=== PATIENT | female | born 1975 | race African-American/Black ===

== ENCOUNTER 2016-05-16 15:59 | Emergency (ER) | payer BC, OTHER ==
[2016-05-16 16:06] VITALS: BP 138/91; PULSE 100; TEMP 97.9; BMI 33.5
--- NOTE | 2016-05-16 16:12 | PDOC ---
Rapid Medical Evaluation Chief Complaint: Vaginal Sxs Time Seen by Provider: 05/16/16 16:08 Medical Evaluation: Allergies Allergy/AdvReac Type Severity Reaction Status Date / Time No Known Drug Allergies Allergy Verified 05/16/16 16:03 Vital Signs Temp Pulse Resp BP Pulse Ox 97.9 F 100 H 18 138/91 99 05/16/16 16:04 05/16/16 16:04 05/16/16 16:04 05/16/16 16:04 05/16/16 16:04 05/16/16 16:10 RME Note: I have performed a brief, in-person evaluation of this patient . This patient presents with CC: Dysuria and outter vaginal itch x 3 days Pertinent PE findings are: No PE; no fever I have ordered: UA, U preg., Urine chlamydia and GC The patient will proceed to ED for further evaluation.
[2016-05-16 17:50] LABS: URINE APPEARANCE CLOUDY; URINE BILIRUBIN NEGATIVE (NEGATIVE); URINE BLOOD NEGATIVE (NEGATIVE); URINE COLOR AMBER; URINE GLUCOSE (UA) NEGATIVE (NEGATIVE); URINE KETONE NEGATIVE (NEGATIVE); URINE LEUK ESTERASE 1+ (NEGATIVE); URINE NITRITE POSITIVE (NEGATIVE); URINE PROTEIN 1+ (NEGATIVE); URINE UROBILINOGEN 4.0 E.U/dl E.U./dl (0.2-1.0)
[2016-05-16 17:57] LABS: URINE BACTERIA RARE /hpf (NONE SEEN); URINE MUCUS RARE; URINE RBC 2 /hpf (0-3); URINE WBC 35 /hpf (3-5); YEAST MANY
[2016-05-16] MEDS ORDERED: AZITHROMYCIN 1 GM PACKET PO ONE (18:45)
[2016-05-16] MEDS ORDERED: AZITHROMYCIN 1 GM PACKET ONE (18:48)
--- NOTE | 2016-05-16 18:54 | PDOC ---
History of Present Illness - General Chief Complaint: Vaginal Sxs Stated Complaint: GENITAL PAIN/ ITCHING, BURNING Time Seen by Provider: 05/16/16 16:08 History Source: Patient Exam Limitations: No Limitations - History of Present Illness Travel History: No Initial Comments: 05/16/16 18:46 40 yr female with "cuts to vagina" vaginal discharge for 4 days. Pt states the sores to vaginal area are multiplying. Pt c/o urinary urgency and burning. Past History - Past Medical History Allergies/Adverse Reactions: Allergies Allergy/AdvReac Type Severity Reaction Status Date / Time No Known Drug Allergies Allergy Verified 05/16/16 16:03 Home Medications: Ambulatory Orders Ferrous Sulfate [Feosol] 650 mg PO DAILY #1 11/26/12 Oxycodone HCl/Acetaminophen [Percocet 5-325 mg Tablet] 2 combo PO Q4H PRN #30 tablet 11/26/12 Acyclovir [Zovirax -] 400 mg PO TID #60 capsule 05/16/16 Cephalexin [Keflex] 500 mg PO BID #14 capsule 05/16/16 Anemia: Yes Asthma: No Cancer: No Cardiac Disorders: No CVA: No COPD: No CHF: No Dementia: No Diabetes: No GI Disorders: No Disorders: No HTN: No Hypercholesterolemia: No Liver Disease: No Seizures: Yes (FIRST SEIZURE-09/08) Thyroid Disease: No - Psycho/Social/Smoking Cessation Hx Suicidal Ideation: No Smoking History: Never smoked Hx Alcohol Use: No Drug/Substance Use Hx: No Substance Use Type: None Hx Substance Use Treatment: No Review of Systems - Review of Systems Able to Perform ROS?: Yes Is the patient limited Burkinan proficient: No Constitutional: No: Symptoms Reported HEENTM: No: Symptoms Reported Respiratory: No: Symptoms reported Cardiac (ROS): No: Symptoms Reported ABD/GI: No: Symptoms Reported : Yes: Symptoms Reported, See HPI *Physical Exam - Vital Signs Last Vital Signs Temp Pulse Resp BP Pulse Ox 97.9 F 100 H 18 138/91 99 05/16/16 16:04 05/16/16 16:04 05/16/16 16:04 05/16/16 16:04 05/16/16 16:04 - Physical Exam General Appearance: Yes: Nourished, Appropriately Dressed HEENT: positive: EOMI, CHICHI, Normal ENT Inspection, TMs Normal, Pharynx Normal Neck: positive: Supple Respiratory/Chest: positive: Lungs Clear, Normal Breath Sounds Cardiovascular: positive: Regular Rhythm, Regular Rate Female Pelvic Exam: positive: discharge (yellow discharge), other (lesions multiple to labia majora and minor, circular grouped vesicles some open ) ED Treatment Course - ADDITIONAL ORDERS Additional order review: Laboratory Results 05/16/16 17:20 Urine Color Bekah Urine Appearance Cloudy Urine pH 7.0 D Ur Specific [place] 1.018 Urine Protein 1+ H Urine Glucose (UA) Negative Urine Ketones Negative Urine Blood Negative Urine Nitrite Positive Urine Bilirubin Negative Urine Urobilinogen 4.0 e.u/dl H Ur Leukocyte Esterase 1+ H Urine RBC 2 Urine WBC 35 Ur Epithelial Cells Many Urine Bacteria Rare Urine Mucus Rare Urine Yeast Many Medical Decision Making - Medical Decision Making 05/16/16 18:48 cc: vaginal discharge "cuts on vagina" will check UA r/o UTI, chalmydia gc sent pt admits to unprotected sex with one male no previous history of STD 05/16/16 18:49 05/16/16 18:59 I have discussed in detail with pt to have 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 and primary care doctor medications given as discussed pt refused HIV test today will follow with her PMD 05/16/16 19:08 *DC/Admit/Observation/Transfer Diagnosis at time of Disposition: Herpes genitalis in women Urinary tract infection Qualifiers: Urinary tract infection type: acute cystitis Hematuria presence: with hematuria Qualified Code(s): N30.01 - Acute cystitis with hematuria - Discharge Dispostion Disposition: HOME Condition at time of disposition: Good - Prescriptions Prescriptions: Cephalexin [Keflex] 500 mg PO BID #14 capsule Acyclovir [Zovirax -] 400 mg PO TID #60 capsule - Referrals Referrals: Dea Daugherty MD [Primary Care Provider] - Dwight Fisher MD [Staff Physician] - - Patient Instructions Additional Instructions: take the medications as prescribed no sexual activity until symptoms have improved and you have followed up with the marble setter you have a urine infection and will need to take 7 days of antibiotics sent to [facility] antiviral medication sent to [facility] as well - Post Discharge Activity Work/School Note: Back to Work
== END 2016-05-16 19:38 | disposition home or self-care (01) ==
LOC: JERFT 15:59
DX: A60.04 Herpesviral vulvovaginitis (principal); N30.01 Acute cystitis with hematuria
CPT/HCPCS: 36415; 81003; 81015; 84703; 86593; 87070; 87205; 87255; 87491; 87591; 96372; 99281-25

== ENCOUNTER 2019-03-24 20:00 | Inpatient (IN) | payer OTHER ==
--- NOTE | 2019-03-24 20:38 | PDOC ---
Attending Attestation - Resident Resident Name: Delfino Nichols - ED Attending Attestation I have performed the following: I have examined & evaluated the patient, The case was reviewed & discussed with the resident, I agree w/resident's findings & plan - HPI HPI: 03/24/19 21:11 Pt called by PMD and told to get admitted to the hospital for hb of 4.5 Here in the ER pt has Hb of 4.5, and we are arranging for transfusion Pt reports heavy menstrual flow "like a river" for the first 3 days of her week long menses. Pt gets a regular period. She has a hx of uterine fibroids, whicgh were resected by her URGENT CARE PHYSICIAN Adrienne. Pt is on her menses now. Pt has SOB and weakness, but she walks slowly and takes her time with everything. She works at [employer], and she is relatively sedentary. - Physicial Exam PE: 03/24/19 21:15 Pt has pale conjunctiva Pt is tachycardic Pt has normal HEENT lungs CTAB abd soft NT ND no flank pain No neuro deficits afebrile - Medical Decision Making 03/24/19 21:16 Pt will get PRBCs and she will be admitted PMD is Sarina Heart Score/ECG Review - ECG Intrepretation Rhythm: Regular Rhythm - [place]: Normal - P and [place] Delta Wave(s) Present: No WPW: No - ST and T Early Repolarization: No Non Specific ST-T Wave changes: No Flattened T Waves: No Prolonged Q-T Interval: No - ECG Impressions Normal ECG: Yes Non-specific ST Elevation: No Ischemic Changes: No Bradycardia: No Torsades manish Pointes: No WPW: No
--- NOTE | 2019-03-24 20:39 | PDOC ---
History of Present Illness - General Chief Complaint: Blood Transfusion Stated Complaint: BLOOD TRANSFUSION History Source: Patient Exam Limitations: No Limitations - History of Present Illness Initial Comments: 43 yo F with a hx of uterine fibroids, IVDA, and seizure disorder presents to the emergency department with anemia per pMD referral. Per the patient, she had her blood drawn 2 days prior to presentation and was told today that her hemoglobin was in the mid 4's (per patient) and required immediate ED evaluation. The patient endorses HOFFMANN over the past 2 weeks with heavier than usual menses (currently on her menstrual cycle) with multiple pad changes per day. The patient is followed by Dr. Deleon in the past, but has not followed up with her in "years". The patient denies the following: fevers, chills, chest pain, nausea, vomiting, visual disturbance, dysuria, hematuria, diarrhea, hematochezia, and leg pain/swelling. Allergies: NDKA Past History - Past Medical History Allergies/Adverse Reactions: Allergies Allergy/AdvReac Type Severity Reaction Status Date / Time No Known Drug Allergies Allergy Verified 05/16/16 16:03 Home Medications: Ambulatory Orders Ascorbate Calcium [Vitamin C] 500 mg PO DAILY 03/25/19 Ferrous Sulfate [Feosol] 325 mg PO DAILY 03/25/19 Folic Acid 1 mg PO DAILY 03/25/19 Zonisamide [Zonegran -] 300 mg PO DAILY 03/25/19 Anemia: Yes Asthma: No Cancer: No Cardiac Disorders: No CVA: No COPD: No CHF: No Dementia: No Diabetes: No GI Disorders: No Disorders: No HTN: No Hypercholesterolemia: No Liver Disease: No Seizures: Yes (FIRST SEIZURE-09/08) Thyroid Disease: No - Psycho Social/Smoking Cessation Hx Smoking History: Never smoked Hx Alcohol Use: No Drug/Substance Use Hx: No Substance Use Type: None Hx Substance Use Treatment: No Review of Systems - Review of Systems Able to Perform ROS?: Yes Is the patient limited Azeri proficient: No Constitutional: Yes: Weakness. No: Chills, Diaphoresis, Fever HEENTM: No: Eye Pain, Ear Pain, Nose Pain, Throat Pain, Mouth Pain Respiratory: No: Cough, Shortness of Breath, Hemoptysis Cardiac (ROS): No: Chest Pain, Lightheadedness, Palpitations, Chest Tightness ABD/GI: No: Constipated, Diarrhea, Nausea, Rectal Bleeding, Vomiting, Tarry Stools : No: Burning, Dysuria, Hematuria Musculoskeletal: No: Back Pain, Joint Pain, Neck Pain Integumentary: Yes: Pallor. No: Bruising, Erythema, Rash Neurological: No: Headache, Numbness, Tingling, Tremors Psychiatric: No: Change in Appetite Endocrine: No: Unexplained Weight Loss Hematologic/Lymphatic: Yes: Anemia *Physical Exam - Vital Signs Last Vital Signs Temp Pulse Resp BP Pulse Ox 98 F 86 20 107/44 L 100 03/24/19 20:09 03/24/19 20:09 03/24/19 20:09 03/24/19 20:09 03/24/19 20:09 - Physical Exam General Appearance: Yes: Nourished, Appropriately Dressed. No: Apparent Distress, Intoxicated HEENT: positive: EOMI, CHICHI, Normal Voice, Pharynx Normal, Pale Conjunctivae, Hearing Grossly Normal. negative: Scleral Icterus (R), Scleral Icterus (L), Muffled/Hoarse voice, Pharyngeal Erythema, Tonsillar Exudate, Tonsillar Erythema , Nasal Congestion, Rhinorrhea, Sinus Tenderness, Excessive drooling Neck: positive: Trachea midline, Supple. negative: Tender, Lymphadenopathy (R) , Lymphadenopathy (L), Tender lateral, Tender midline Respiratory/Chest: positive: Lungs Clear, Normal Breath Sounds. negative: Chest Tender, Respiratory Distress, Accessory Muscle Use, Rhonchi, Stridor, Wheezing Cardiovascular: positive: Regular Rhythm, Regular Rate, S1, S2, Systolic Murmur (grade 1) Gastrointestinal/Abdominal: positive: Normal Bowel Sounds, Flat, Soft. negative : Tender, Distended, Guarding, Rebound Lymphatic: negative: Adenopathy Musculoskeletal: positive: Normal Inspection. negative: CVA Tenderness, Vertebral Tenderness Extremity: positive: Normal Capillary Refill, Normal Inspection, Normal Range of Motion. negative: Tender, Swelling, Calf Tenderness Integumentary: positive: Normal Color, Dry, Warm. 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 Initial Vital Signs Temp Pulse Resp BP Pulse Ox 98 F 86 20 107/44 L 100 03/24/19 20:09 03/24/19 20:09 03/24/19 20:09 03/24/19 20:09 03/24/19 20:09 Work up: Laboratory Tests 03/24/19 03/24/19 03/24/19 20:45 20:45 20:45 WBC 3.4 L RBC 3.17 L Hgb 4.5 L* Hct 16.8 L D MCV 53.0 L MCH 14.3 L D MCHC 27.0 L RDW 35.5 H Plt Count 110 L D MPV 11.1 D Absolute Neuts (auto) 1.9 Neutrophils % 56.4 Lymphocytes % 35.8 D Monocytes % 5.1 Eosinophils % 1.7 Basophils % 1.0 Nucleated RBC % 0 Hypochromia 3+ Poikilocytosis 2+ Anisocytosis 3+ Sodium 142 Potassium 3.4 L Chloride 114 H Carbon Dioxide 22 Anion Gap 7 L BUN 9.5 Creatinine 0.8 Est GFR (CKD-EPI)AfAm 104.65 Est GFR (CKD-EPI)NonAf 90.30 Random Glucose 91 Calcium 8.5 Total Bilirubin 0.3 AST 11 L ALT 17 Alkaline Phosphatase 101 Total Protein 6.7 Albumin 3.4 Anti-A Titer Blood Type B POSITIVE Antibody Screen Negative Crossmatch See Detail 03/24/19 21:00 WBC RBC Hgb Hct MCV MCH MCHC RDW Plt Count MPV Absolute Neuts (auto) Neutrophils % Lymphocytes % Monocytes % Eosinophils % Basophils % Nucleated RBC % Hypochromia Poikilocytosis Anisocytosis Sodium Potassium Chloride Carbon Dioxide Anion Gap BUN Creatinine Est GFR (CKD-EPI)AfAm Est GFR (CKD-EPI)NonAf Random Glucose Calcium Total Bilirubin AST ALT Alkaline Phosphatase Total Protein Albumin Anti-A Titer Cancelled Blood Type Cancelled Antibody Screen Cancelled Crossmatch patient's hemglobin is at 4.5. Patient to be transfused with 2x PRBCs. Will admit patient for symptomatic anemia requiring transfusion with OBGYN evaluation needed for fibroid management. CXR negative for acute process EKG: ventricular rate is 81 bpm, WA is 154 ms, QRS is 76 ms, QTc is [address] elevation or depression. TWI in V2-V3. Discharge - Discharge Information Problems reviewed: Yes Clinical Impression/Diagnosis: Fibroid uterus, Anemia Condition: Good - Follow up/Referral - Patient Discharge Instructions - Post Discharge Activity
[2019-03-24 20:57] LABS: EOS % 1.7 % (0-4.5); HEMATOCRIT 16.8 % (32.4-45.2); LYMPH % 35.8 % (8-40); MCH 14.3 pg (25.7-33.7); MEAN PLT VOLUME 11.1 fl (7.5-11.1); MONO % 5.1 % (3.8-10.2); NEUT % 56.4 % (42.8-82.8); PLATELET COUNT 110 K/MM3 (134-434); RBC 3.17 M/mm3 (3.60-5.2); RDW 35.5 % (11.6-15.6); WHITE BLOOD COUNT 3.4 K/mm3 (4.0-10.0)
[2019-03-24 21:00] LABS: HEMOGLOBIN 4.5 GM/dL (10.7-15.3)
[2019-03-24 21:22] LABS: ALBUMIN 3.4 g/dl (3.4-5.0); BILIRUBIN,TOTAL 0.3 mg/dL (0.2-1); BLOOD UREA NITROGEN 9.5 mg/dL (7-18); CALCIUM 8.5 mg/dL (8.5-10.1); CREATININE 0.8 mg/dL (0.55-1.3); POTASSIUM 3.4 mmol/L (3.5-5.1); TOT PROT 6.7 g/dl (6.4-8.2)
[2019-03-24] MEDS ORDERED: FOLIC ACID INJECTION - 1 MG, THIAMINE HCL 100 MG, MULTIVIT INJECTION ADULT 10 ML in SOD... IVPB ONE (21:23)
[2019-03-24 21:45] LABS: ANISOCYTOSIS 3+
--- NOTE | 2019-03-25 00:36 | HP ---
43 F h/o uterine fibroids, chronic CHALINO, seizure disorder presents to ED w/ Hgb 4.5. Patient was called by her PMD to go to ED immediately for blood transfusion. Patient endorses over the past few weeks, shes been feeling worsening fatigue and SOB on exertion. Pt. used to follow with Dr. Deleon for uterine fibroids where some were resected years ago and she was lost to follow up. Currently endorses heavy menstruation, occurring every month, the first 3-4 days she says flows like a river. Currently in ED, pt. receiving first unit of pRBC tolerating transfusion well. VSS. PE VSS GA comfortable, AAox3, speaking in full sentences, NAD HEENT NC/AT, EOMI, pale conjunctiva, dry MM, neck supple Chest CTAB, no wheezing or crackles CVS S1, S2+, RRR, no m/r/g Abd Soft, NT, ND, no guarding, BS+ Ext No LE edema, no calf tenderness Vital Signs - 24 hr 03/24/19 03/24/19 03/24/19 20:09 21:15 21:16 Temperature 98 F Pulse Rate 86 Pulse Rate [ 83 Radial] Respiratory 20 18 Rate Blood Pressure 107/44 L Blood Pressure 114/66 [Right Arm] O2 Sat by Pulse 100 98 98 Oximetry (%) 03/24/19 03/24/19 03/25/19 22:20 22:35 00:09 Temperature 98.0 F 98.0 F Pulse Rate Pulse Rate [ 82 81 81 Radial] Respiratory 18 18 18 Rate Blood Pressure Blood Pressure 115/73 112/69 109/64 [Right Arm] O2 Sat by Pulse 100 100 100 Oximetry (%) Laboratory Results - last 24 hr 03/24/19 03/24/19 03/24/19 20:45 20:45 20:45 WBC 3.4 L RBC 3.17 L Hgb 4.5 L* Hct 16.8 L D MCV 53.0 L MCH 14.3 L D MCHC 27.0 L RDW 35.5 H Plt Count 110 L D MPV 11.1 D Absolute Neuts (auto) 1.9 Neutrophils % 56.4 Lymphocytes % 35.8 D Monocytes % 5.1 Eosinophils % 1.7 Basophils % 1.0 Nucleated RBC % 0 Hypochromia 3+ Poikilocytosis 2+ Anisocytosis 3+ Sodium 142 Potassium 3.4 L Chloride 114 H Carbon Dioxide 22 Anion Gap 7 L BUN 9.5 Creatinine 0.8 Est GFR (CKD-EPI)AfAm 104.65 Est GFR (CKD-EPI)NonAf 90.30 Random Glucose 91 Calcium 8.5 Total Bilirubin 0.3 AST 11 L ALT 17 Alkaline Phosphatase 101 Total Protein 6.7 Albumin 3.4 Anti-A Titer Blood Type B POSITIVE Antibody Screen Negative Crossmatch See Detail 03/24/19 21:00 WBC RBC Hgb Hct MCV MCH MCHC RDW Plt Count MPV Absolute Neuts (auto) Neutrophils % Lymphocytes % Monocytes % Eosinophils % Basophils % Nucleated RBC % Hypochromia Poikilocytosis Anisocytosis Sodium Potassium Chloride Carbon Dioxide Anion Gap BUN Creatinine Est GFR (CKD-EPI)AfAm Est GFR (CKD-EPI)NonAf Random Glucose Calcium Total Bilirubin AST ALT Alkaline Phosphatase Total Protein Albumin Anti-A Titer Cancelled Blood Type Cancelled Antibody Screen Cancelled Crossmatch Home Medications Medication Instructions Recorded Ferrous Sulfate [Feosol] 650 mg PO DAILY #1 11/26/12 Current Medications Generic Name Dose Route Start Last Admin Trade Name Freq PRN Reason Stop Dose Admin Folic Acid 1 mg/ Thiamine HCl 1,000 mls @ 125 mls/hr 03/24/19 21:23 03/24/19 22:30 100 mg/ Multivitamins/Minerals IVPB 03/25/19 05:22 125 mls/hr 10 ml/ Sodium Chloride ONCE ONE Administration Zonisamide 300 mg 03/25/19 10:00 Zonegran - PO DAILY DRU A/P: 43 F h/o uterine fibroids, CHALINO, seizure disorder presents with symptomatic anemia and Hgb 4.5. 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 Seizure precautions, cont. anti-seizure meds DVT ppx: SCD/SHELLEY for now FEN: PO hydration, chem daily, Regular diet Visit type - Emergency Visit Emergency Visit: Yes ED Registration Date: 03/24/19 Care time: The patient presented to the Emergency Department on the above date and was hospitalized for further evaluation of their emergent condition. - New Patient This patient is new to me today: Yes Date on this admission: 03/25/19 - Critical Care Critical Care patient: No
[2019-03-25 08:07] VITALS: BMI 30.7
--- NOTE | 2019-03-25 08:53 | PN ---
Progress Note (short form) - Note Progress Note: 43 yo lady with PMH of menorrhagia and chr. iron def. 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
[2019-03-25] MEDS ORDERED: ZONISAMIDE 100 MG CAPSULE PO SCH (10:00)
[2019-03-25 10:25] LABS: HEMATOCRIT 25.1 % (32.4-45.2); HEMOGLOBIN 7.4 GM/dL (10.7-15.3); MCHC 29.3 g/dl (32.0-36.0); MEAN PLT VOLUME 11.1 fl (7.5-11.1); PLATELET COUNT 95 K/MM3 (134-434); RBC 3.86 M/mm3 (3.60-5.2); RDW 45.1 % (11.6-15.6); WHITE BLOOD COUNT 4.7 K/mm3 (4.0-10.0)
[2019-03-25 10:36] LABS: MCH 19.1 pg (25.7-33.7)
[2019-03-25] MEDS ORDERED: PT OWN MED DRAWER 7, Y5N ONE ×2 (11:53→12:08)
--- NOTE | 2019-03-25 13:56 | EKG ---
Test Reason : Blood Pressure : / mmHG Vent. Rate : 081 BPM Atrial Rate : 081 BPM P-R Int : 154 ms QRS Dur : 076 ms QT Int : 396 ms P-R-T Axes : 050 034 034 degrees QTc Int : 460 ms NORMAL SINUS RHYTHM NORMAL ECG WHEN COMPARED WITH ECG OF 21-NOV-2012 14:48, NO SIGNIFICANT CHANGE WAS FOUND Confirmed by Aruna Copeland ([id number]) on 03/25/2019 1:56:02 PM Referred By: Confirmed By:Aruna Copeland
--- NOTE | 2019-03-25 19:09 | DS ---
Physical Examination Vital Signs: Vital Signs Temperature 97.6 F 03/25/19 08:50 Pulse Rate 80 03/25/19 08:50 Respiratory Rate 20 03/25/19 08:50 Blood Pressure 128/79 03/25/19 08:50 O2 Sat by Pulse Oximetry (%) 100 03/25/19 04:37 Constitutional: Yes: Well Nourished Eyes: Yes: EOM Intact HENT: Yes: Normocephalic Neck: Yes: Trachea Midline Cardiovascular: Yes: Regular Rate and Rhythm Respiratory: Yes: CTA Bilaterally Gastrointestinal: Yes: Normal Bowel Sounds, Soft, Other (plapable fibroid uterus ) Edema: No Peripheral Pulses WNL: Yes Neurological: Yes: WNL ...Motor Strength: WNL Psychiatric: Yes: WNL Labs: CBC WBC 6.0 K/mm3 (4.0-10.0) 03/25/19 21:20 RBC 4.05 M/mm3 (3.60-5.2) 03/25/19 21:20 Hgb 8.3 GM/dL (10.7-15.3) L 03/25/19 21:20 Hct 27.2 % (32.4-45.2) L 03/25/19 21:20 MCV 67.1 fl (80-96) L 03/25/19 21:20 MCH 20.5 pg (25.7-33.7) L 03/25/19 21:20 MCHC 30.6 g/dl (32.0-36.0) L 03/25/19 21:20 RDW 44.0 % (11.6-15.6) H 03/25/19 21:20 Plt Count 115 K/MM3 (134-434) L D 03/25/19 21:20 MPV 11.1 fl (7.5-11.1) 03/25/19 21:20 Absolute Neuts (auto) 1.9 K/mm3 (1.5-8.0) 03/24/19 20:45 Neutrophils % 56.4 % (42.8-82.8) 03/24/19 20:45 Lymphocytes % 35.8 % (8-40) D 03/24/19 20:45 Monocytes % 5.1 % (3.8-10.2) 03/24/19 20:45 Eosinophils % 1.7 % (0-4.5) 03/24/19 20:45 Basophils % 1.0 % (0-2.0) 03/24/19 20:45 Nucleated RBC % 0 % (0-0) 03/24/19 20:45 Hypochromia 3+ 03/24/19 20:45 Platelet Comment Present 03/25/19 09:25 Poikilocytosis 2+ 03/24/19 20:45 Anisocytosis 3+ 03/24/19 20:45 Discharge Summary Problems reviewed: Yes Reason For Visit: ANEMIA Current Active Problems Fibroid uterus (Acute) Iron deficiency anemia due to chronic blood loss (Acute) Menorrhagia (Acute) Hospital Course: admitted for symptomatic iron deficient anemia due to chr. blood loss, due to menorrhagia, due to fibroid uterus. 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
--- NOTE | 2019-03-25 21:32 | CON.OBG ---
Consult Consult Specialty:: CARD PLACER Reason for Consultation:: Abnormal uterine bleeding - History of Present Illness Chief Complaint: Vaginal bleeding History of Present Illness: 43 F h/o uterine fibroids, chronic CHALINO, seizure disorder presents to ED w/ Hgb 4.5. Patient was called by her PMD to go to ED immediately for blood transfusion. Patient endorses over the past few weeks, shes been feeling worsening fatigue and SOB on exertion. Pt. used to follow with Dr. Deleon for uterine fibroids where some were resected years ago and she was lost to follow up. CARD PLACER consulted due to prolonged menses associated with anemia. I came to see patient ( Para 0 ), she admits to prior myomectomy. She admits to menses lasting more than seven days. She desires future fertility. Repeat sonogram showed evidence of enlarged uterus consistent with leiomyoma of the uterus. - History Source History Provided By: Patient Limitations to Obtaining History: No Limitations - Past Medical History ...LMP: 03/22/19 ...: No - Alcohol/Substance Use Hx Alcohol Use: No - Smoking History Smoking history: Never smoked Have you smoked in the past 12 months: No Home Medications - Allergies Allergies/Adverse Reactions: Allergies Allergy/AdvReac Type Severity Reaction Status Date / Time No Known Drug Allergies Allergy Verified 05/16/16 16:03 - Home Medications Home Medications: Ambulatory Orders Ascorbate Calcium [Vitamin C] 500 mg PO DAILY 03/25/19 Ferrous Sulfate [Feosol] 325 mg PO DAILY 03/25/19 Folic Acid 1 mg PO DAILY 03/25/19 Zonisamide [Zonegran -] 300 mg PO DAILY 03/25/19 Physical Exam-CARD PLACER Vital Signs: Vital Signs Temperature 97.4 F L 03/25/19 13:20 Pulse Rate 88 03/25/19 13:20 Respiratory Rate 03/25/19 13:20 Blood Pressure 136/89 03/25/19 13:20 O2 Sat by Pulse Oximetry (%) 100 03/25/19 04:37 Labs: CBC, BMP 03/25/19 09:25 03/24/19 20:45 Assessment/Plan Menorrhagia Anemia Leiomyoma of the uterus Status post blood transfusion Counseling on management ( Myomectomy versus Hysterectomy ) Endometrial biopsy recommended to rule out endometrial hyperplasia or neoplasm. Follow up with CARD PLACER as outpatient
[2019-03-25 21:39] LABS: HEMATOCRIT 27.2 % (32.4-45.2); HEMOGLOBIN 8.3 GM/dL (10.7-15.3); MCH 20.5 pg (25.7-33.7); MCHC 30.6 g/dl (32.0-36.0); MEAN CELL VOLUME 67.1 fl (80-96); MEAN PLT VOLUME 11.1 fl (7.5-11.1); PLATELET COUNT 115 K/MM3 (134-434); RBC 4.05 M/mm3 (3.60-5.2)
[2019-03-25 22:59] VITALS: BP 127/89; PULSE 69; TEMP 97.5
== END 2019-03-25 22:10 | disposition home or self-care (01) | DRG 663 ==
LOC: JER 20:00 → JERBED 21:12 → J8W 03-25 00:38
PROVIDERS: ADMIT Internal Medicine; ATTEND Internal Medicine
PROC: 30233N1 Transfusion of Nonautologous Red Blood Cells into Peripheral Vein, Percutaneous Approach (ICD-10-PCS; principal; 2019-03-24)
DX: D50.9 Iron deficiency anemia, unspecified (principal); N92.0 Excessive and frequent menstruation with regular cycle; D25.9 Leiomyoma of uterus, unspecified; R56.9 Unspecified convulsions
CPT/HCPCS: 36415; 36430; 36511; 71045-TC-FY; 76856-TC; 80053; 85025; 85027; 86850; 86900; 86901; 86922; 93005; 93010; 99285-25; J7030; P9038; P9058